=== PATIENT | male | born 1985 | race Caucasian/White ===

== ENCOUNTER 2016-08-22 20:50 | Emergency (ER) | payer MEDICAID, OTHER ==
[~2016-08-22] VITALS: Ht 182.9 cm; Wt 99.8 kg
[2016-08-22 21:44] VITALS: BP 144/75
--- NOTE | 2016-08-22 21:44 | NUR ---
Mayte doan in [facility] - 08/22/16 at 2154 by SONYA PT TAKEN TO OF
--- NOTE | 2016-08-22 23:50 | NUR ---
PT TAKEN TO BED 8
--- NOTE | 2016-08-22 23:55 | NUR ---
CAME IN WITH C/O REDNESS AND SWELLING OF BOTH FEET AND LOWER LEGS FOR 4 DAYS NOW.
[2016-08-23] MEDS ORDERED: ceFAZolin 1,000 MG VIAL IM ONE (01:10)
--- NOTE | 2016-08-23 02:02 | NUR ---
Dr. San evaluating patient at bedside.
[2016-08-23 02:03] VITALS: BP 128/79
--- NOTE | 2016-08-23 02:03 | NUR ---
Patient discharged with v/s stable. Written and verbal after care instructions given and explained BY DR. RUDD. Patient alert, oriented and verbalized understanding of instructions. Ambulatory with steady gait. All questions addressed prior to discharge. ID band removed. Patient advised to follow up with PMD. Rx of NAPROSYN, KEFLEX given. Patient educated on indication of medication including possible reaction and side effects. Opportunity to ask questions provided and answered.
== END 2016-08-23 02:03 | disposition home or self-care (01) ==
LOC: MED 20:51
DX: L03.116 Cellulitis of left lower limb (principal); L03.115 Cellulitis of right lower limb; Z86.19 Personal history of other infectious and parasitic diseases
CPT/HCPCS: 96372; 99283; J0690

== ENCOUNTER 2017-08-11 23:55 | Emergency (ER) | payer OTHER ==
[~2017-08-11] VITALS: Ht 182.9 cm; Wt 99.8 kg
[2017-08-12 00:04] VITALS: BP 151/91
--- NOTE | 2017-08-12 01:20 | NUR ---
PATIENT AMBULATED TO ER CHAIR E.
--- NOTE | 2017-08-12 01:21 | NUR ---
PATIENT IS A 31 Y/O MALE WHO PRESENTS TO THE ED C/O FLU LIKE SYMPTOMS. PT STATES, "I FEEL LIKE IM GETTING THE FLU AND ITS BEEN ABOUT 1 WEEK." PT REPORTS 7/10 ACHING THROAT PAIN THAT DOES NOT RADIATE. PT DENIES CP, SOB, REPORTS NAUSEA DENIES VOMITING/DIARRHEA. PT AAOX4, RR EVEN/UNLABORED. PT REPOSITIONED FOR COMFORT, BED IN LOWEST POSITION. ER MD DR. DELGADILLO NOTIFIED. WILL CONTINUE TO MONITOR.
--- NOTE | 2017-08-12 02:00 | NUR ---
PATIENT RESTING AT THIS TIME.
[2017-08-12 02:25] LABS: BASOPHILS # (AUTO) 0.1 K/uL (0.00-0.22); BASOPHILS % (AUTO) 1.2 % (0.0-2.0); EOSINOPHILS % (AUTO) 0.4 % (0.0-4.0); HEMATOCRIT 44.9 % (36-52); HEMOGLOBIN 14.9 g/dL (12.0-18.0); LYMPHOCYTES % (AUTO) 12.3 % (20.5-51.1); MEAN CORPUSCULAR HEMOGLOBIN 28 pg (27-31); MEAN CORPUSCULAR HGB CONC 33 g/dL (33-37); MEAN CORPUSCULAR VOLUME 85 fL (80-94); MONOCYTES # (AUTO) 0.7 K/uL (0.8-1.0); MONOCYTES % (AUTO) 8.7 % (1.7-9.3); NEUTROPHILS % (AUTO) 77.4 % (42.2-75.2); PLATELET COUNT (AUTO) 226 K/uL (140-450); RED BLOOD CELL COUNT(AUTO) 5.31 MIL/uL (4.20-6.10); RED CELL DISTRIBUTION WIDTH 12.2 % (11.6-13.7); WHITE BLOOD COUNT (AUTO) 7.8 K/uL (4.8-10.8)
[2017-08-12 02:48] LABS: ANION GAP 12.1 (8-16); POTASSIUM 4.1 mmol/L (3.5-5.1)
--- NOTE | 2017-08-12 03:00 | NUR ---
PATIENT MOVED TO ER BED 1.
[2017-08-12 03:02] LABS: ALBUMIN 3.5 g/dL (3.4-5.0); TOTAL BILIRUBIN 0.3 mg/dL (0.0-1.0)
--- NOTE | 2017-08-12 04:00 | NUR ---
PATIENT RESTING AT THIS TIME.
--- NOTE | 2017-08-12 05:00 | NUR ---
PATIENT RESTING AT THIS TIME. NO SIGNS OF DISTRESS.
[2017-08-12 05:38] VITALS: BP 139/82
--- NOTE | 2017-08-12 05:38 | NUR ---
Patient discharged with v/s stable. Written and verbal after care instructions given and explained. Patient alert, oriented and verbalized understanding of instructions. Ambulatory with steady gait. All questions addressed prior to discharge. ID band removed. Patient advised to follow up with PMD. Rx of PROMETHAZINE AND AZITHROMYCIN given. Patient educated on indication of medication including possible reaction and side effects. Opportunity to ask questions provided and answered.
== END 2017-08-12 05:38 | disposition home or self-care (01) ==
LOC: MED 23:55
DX: J40 Bronchitis, not specified as acute or chronic (principal)
CPT/HCPCS: 36415; 71045; 80053; 84484; 85025; 87040; 87081; 87804; 99285

== ENCOUNTER 2017-10-10 17:58 | Emergency (ER) | payer OTHER ==
[~2017-10-10] VITALS: Ht 188 cm; Wt 108.9 kg
--- NOTE | 2017-10-10 18:00 | NUR ---
PT RUTHA BLS FOR ANXIETY TO BED 5
[2017-10-10 18:02] VITALS: BP 148/71
[2017-10-10] MEDS ORDERED: LORazepam 2 MG/ML VIAL ONE (18:03)
[2017-10-10] MEDS ORDERED: ONDANSETRON 4 MG/5 ML ORASYR PO ONE (18:05)
[2017-10-10] MEDS ORDERED: LORazepam 2 MG/ML VIAL IM/IVP ONE (18:05)
[2017-10-10] MEDS ORDERED: NACL 0.9% 2,000 ML IV ONE (18:05)
[2017-10-10] MEDS ORDERED: HALOPERIDOL IM 5 MG/ML VIAL IM ONE (18:10)
[2017-10-10] MEDS ORDERED: diphenhydrAMINE 50 MG/ML VIAL IM ONE (18:10)
[2017-10-10] MEDS ORDERED: HALOPERIDOL IM 5 MG/ML VIAL ONE (18:10)
--- NOTE | 2017-10-10 18:10 | NUR ---
PT BIBA FOR ANXIETY. PER EMS, PT STATES HE ATE A "[employer]" TODAY, STARTED TO GET REALLY ANXIOUS AND CALLED 911. PT WAS IN RESTRAINTS UPON ARRIVAL, DENIES HI/SI. PT IS VERY ANXIOUS, FEARFUL, AND HAVING THOUGHTS OF IMPENDING DOOM, STATES " I FEEL LIKE IM DYING, IM GONNA !" PT PLACED ON ALL MONITORS, TACHYCARDIA OBSERVED AT 130BPM, VS WNL OTHERWISE. DR HEARN AND ER STAFF AT BEDSIDE TO EVAL, VERBAL ORDERS TO MEDICATE BY DR HEARN TO BE CARRIED OUT.
[2017-10-10] MEDS ORDERED: diphenhydrAMINE 50 MG/ML VIAL ONE (18:11)
[2017-10-10] MEDS ORDERED: ONDANSETRON 4 MG/5 ML ORASYR ONE (18:15)
--- NOTE | 2017-10-10 18:26 | NUR ---
PT IS FOLLOWING COMMANDS FOR EKG AND TO OBTAIN IV AND BLOOD DRAW. PTS EYES ARE CLOSED, NOT MOVING AAND SQUIRMING AROUND IN BED LIKE PREVIOUS CONDITION.
--- NOTE | 2017-10-10 18:38 | NUR ---
PT SLEEPING WITH EVEN AND REGULAR RESPIRATIONS, HOB ELEVATED TO 30 DEGRESS, AROUSABLE TO VOICE. PT TOLERATED IV AND BLOOD DRAW WELL. LABS SENT TO LAB
[2017-10-10 18:43] LABS: BASOPHILS % (AUTO) 0.5 % (0.0-2.0); EOSINOPHILS % (AUTO) 0.3 % (0.0-4.0); HEMATOCRIT 43.4 % (36-52); HEMOGLOBIN 14.9 g/dL (12.0-18.0); LYMPHOCYTES # (AUTO) 1.1 K/uL (2.0-11.5); LYMPHOCYTES % (AUTO) 15.6 % (20.5-51.1); MEAN CORPUSCULAR HEMOGLOBIN 29 pg (27-31); MEAN CORPUSCULAR HGB CONC 34 g/dL (33-37); MEAN CORPUSCULAR VOLUME 83.4 fL (80-94); MONOCYTES # (AUTO) 0.5 K/uL (0.8-1.0); MONOCYTES % (AUTO) 6.4 % (1.7-9.3); NEUTROPHILS # (AUTO) 5.6 K/uL (1.8-7.7); PLATELET COUNT (AUTO) 212 K/uL (140-450); RED CELL DISTRIBUTION WIDTH 13.1 % (11.6-13.7); WHITE BLOOD COUNT (AUTO) 7.3 K/uL (4.8-10.8)
[2017-10-10 19:00] LABS: NEUTROPHILS % (AUTO) 77.2 % (42.2-75.2)
[2017-10-10 19:07] LABS: ANION GAP 12.1 (8-16); CARBON DIOXIDE 27.4 mmol/L (21-32); CHLORIDE 102 mmol/L (98-107); CREATININE 1.1 mg/dL (0.7-1.3); GFR ARICAN-AMERICAN 100 mL/min (>90); GLUCOSE 111 mg/dL (74-106); POTASSIUM 3.5 mmol/L (3.5-5.1); SODIUM SERUM 138 mmol/L (136-145); UREA NITROGEN, BLOOD 14 mg/dL (7-18)
[2017-10-10 19:15] LABS: ALBUMIN 3.6 g/dL (3.4-5.0); ASPARTATE AMINOTRANSFERASE 25 U/L (15-37); TOTAL BILIRUBIN 0.5 mg/dL (0.0-1.0)
[2017-10-10 19:17] LABS: ACETAMINOPHEN < 0.5 ug/ml (10-30); SALICYLATE < 2.8 mg/dL (2.8-20.0)
--- NOTE | 2017-10-10 20:39 | NUR ---
Patient appears to be resting comfortably in bed, arousable to light pain. Vital Signs within normal limits. Respirations even and unlabored. pt remains on all monitors, close to nurses station. MD notified of pt condition.
--- NOTE | 2017-10-10 20:58 | NUR ---
Report given to MARIA FERNANDA Turner, care turned over.
[2017-10-10 21:29] LABS: BARBITURATE, URINE NEG. ng/ml (NEG <=200); BENZODIAZEPINE, URINE NEG. ng/mL (NEG <=200); CANNABINOID, URINE POS. ng/mL (NEG <=50); COCAINE, URINE NEG. ng/mL (NEG <=300); OPIATE, URINE NEG. ng/mL (NEG <=2000); PHENCYCLIDINE SCREEN,URINE NEG. ng/mL (NEG <=25)
--- NOTE | 2017-10-10 21:37 | NUR ---
PT RESING IN BED, VSS, APPEARS TO BE IN NO DISTRESS. WILL CONT TO MONITOR,
[2017-10-10] MEDS ORDERED: NACL 0.9% 1,000 ML IV ONE (22:10)
[2017-10-10 22:50] VITALS: BP 102/71
--- NOTE | 2017-10-10 22:50 | NUR ---
Patient discharged with v/s stable. Written and verbal after care instructions given and explained TO PT AND SISTER. Patient AND SISTER verbalized understanding. Ambulatory with to car. PICKED UP BY SISTER. All questions addressed prior to discharge. Advised to follow up with PMD.
== END 2017-10-10 22:50 | disposition home or self-care (01) ==
LOC: MED 17:58
DX: F19.10 Other psychoactive substance abuse, uncomplicated (principal)
CPT/HCPCS: 36415; 80053; 80305; 81002; 85025; 93005; 96360; 96361; 96372; 99285; G0480; G0482; J1200; J1630; J2060; J7030; Q0162

== ENCOUNTER 2018-07-07 21:41 | Emergency (ER) | payer OTHER ==
[~2018-07-07] VITALS: Ht 182.9 cm; Wt 102.1 kg
[2018-07-07 21:58] VITALS: BP 139/97
--- NOTE | 2018-07-07 23:30 | NUR ---
32/M PRESENTS TO ED, C/O "SPIDER BITE" OR POSSIBLE INSECT BITE X2 DAYS. APPROX 1CM X 1CM EMILIA NOTED WITH 7CM X 7CM REDNESS NOTED. +TENDERNESS, +SWELLING. PT AOX4, GCS 15, RR EVEN AND UNLABORED. HX HIV, HTN RX HCTZ, AMLODIPINE
[2018-07-08] MEDS ORDERED: SULFAMETH/TRIMETH DS 800/160MG 1 TAB PO ONE (00:35)
[2018-07-08] MEDS ORDERED: IBUPROFEN 800 MG TAB PO ONE (00:35)
[2018-07-08 01:06] VITALS: BP 148/79
--- NOTE | 2018-07-08 01:06 | NUR ---
Patient discharged with v/s stable. Written and verbal after care instructions given and explained. Patient alert, oriented and verbalized understanding of instructions. Ambulatory with steady gait. All questions addressed prior to discharge. ID band removed. Patient advised to follow up with PMD. Rx of BACTRIM, MOTRIN given. Patient educated on indication of medication including possible reaction and side effects. Opportunity to ask questions provided and answered.
== END 2018-07-08 01:06 | disposition home or self-care (01) ==
LOC: MED 21:41
DX: T63.301A Toxic effect of unspecified spider venom, accidental (unintentional), initial encounter (principal); L03.116 Cellulitis of left lower limb; I10 Essential (primary) hypertension; Y92.89 Other specified places as the place of occurrence of the external cause
CPT/HCPCS: 99283

== ENCOUNTER 2018-08-07 11:23 | Emergency (ER) | payer OTHER ==
[~2018-08-07] VITALS: Ht 182.9 cm; Wt 102.5 kg
--- NOTE | 2018-08-07 11:29 | NUR ---
PT TO ER BED 6
[2018-08-07 11:30] VITALS: BP 136/84
--- NOTE | 2018-08-07 11:30 | NUR ---
report given to Antonio IRVING
--- NOTE | 2018-08-07 11:45 | NUR ---
pt bib self c/o spider bite to L posterior thigh x 1 week, +erythema/edema noted. 4/10 sharp THROBBING PAIN THAT IS NON RADIATING. DENIES ANY FEVER OR CHILLS. RR EVEN AND UNLABORED. ROM INTACT TO L LEG. NON DRAINING AT THIS TIME. ER MD MADE AWARE. WILL CONTINUE TO MONITOR. SAFETY PRECAUTIONS IN PLACE.
--- NOTE | 2018-08-07 12:40 | NUR ---
PT. RESTING COMFORTABLY IN BED, RR EVEN AND UNLABORED. VSS. WILL CONTINUE TO MONITOR.
--- NOTE | 2018-08-07 14:03 | NUR ---
PT. RESTING IN BED, RR EVEN AND UNLABORED, STILL TO BE SEEN BY ER MD. WILL CONTINUE TO MONITOR.
[2018-08-07] MEDS ORDERED: CLINDAMYCIN 600 MG/4 ML VIAL IM ONE (14:15)
[2018-08-07 14:53] VITALS: BP 130/80
--- NOTE | 2018-08-07 14:53 | NUR ---
Patient discharged with v/s stable. Written and verbal after care instructions given and explained. Patient alert, oriented and verbalized understanding of instructions. Ambulatory with steady gait. All questions addressed prior to discharge. ID band removed. Patient advised to follow up with PMD. Rx of CLINDAMYCIN 300MG CAPSULE given. Patient educated on indication of medication including possible reaction and side effects. Opportunity to ask questions provided and answered.
== END 2018-08-07 14:53 | disposition home or self-care (01) ==
LOC: MED 11:23
DX: L03.116 Cellulitis of left lower limb (principal); I10 Essential (primary) hypertension; Z79.899 Other long term (current) drug therapy
CPT/HCPCS: 96372; 99283; J3490

== ENCOUNTER 2019-02-09 16:43 | Emergency (ER) | payer OTHER ==
[~2019-02-09] VITALS: Ht 182.9 cm; Wt 105.4 kg
[2019-02-09 16:52] VITALS: BP 128/86
--- NOTE | 2019-02-09 17:04 | NUR ---
PT AMBULATED WITH STEADY GAIT TO CHAIR A
--- NOTE | 2019-02-09 17:20 | NUR ---
PT EVALUATION BY KANDIS BEAVERS
[2019-02-09] MEDS ORDERED: CEPHALEXIN 500 MG CAP PO ONE (17:25)
--- NOTE | 2019-02-09 17:29 | NUR ---
33/M PRESENTS TO ED, C/O POSSIBLE BUG BITES, X2 DAYS. AREAS OF ERYTHEMA WITH MILD SWELLING AND BITE CHANG NOTED ON L SHOULDER, L ARM, LLE. PT DENIES FEVER, N/V. PT AWAKE AND ALERT, SKIN NORMAL WARM AND DRY, RR EVEN AND UNLABORED. HX HIV, HEP C, HTN RX STRIBILD, HTN MED OTC BENADRYL CREAM WITH LITTLE RELIEF
[2019-02-09 17:57] VITALS: BP 133/89
--- NOTE | 2019-02-09 17:59 | NUR ---
Patient discharged with v/s stable. Written and verbal after care instructions given and explained. Patient alert, oriented and verbalized understanding of instructions. Ambulatory with steady gait. All questions addressed prior to discharge. ID band removed. Patient advised to follow up with PMD. Rx of KEFLEX, BENADRYL, CORTISONE CREAM given. Patient educated on indication of medication including possible reaction and side effects. Opportunity to ask questions provided and answered.
== END 2019-02-09 17:59 | disposition home or self-care (01) ==
LOC: MED 16:43
DX: L25.9 Unspecified contact dermatitis, unspecified cause (principal); L03.114 Cellulitis of left upper limb; L03.116 Cellulitis of left lower limb; I10 Essential (primary) hypertension
CPT/HCPCS: 99283; Q0163

== ENCOUNTER 2019-03-31 02:07 | Observation (INO) | payer OTHER ==
[~2019-03-31] VITALS: Ht 185.4 cm; Wt 104.3 kg
[2019-03-31 02:24] VITALS: BP 132/81
[2019-03-31] MEDS ORDERED: ORE25 PO (02:30)
[2019-03-31] MEDS ORDERED: NACL 0.9% 1,000 ML IV ONE ×2 (04:55→07:45)
[2019-03-31] MEDS ORDERED: KETOROLAC 30 MG/ML VIAL IVP ONE (04:55)
[2019-03-31 05:32] LABS: BASOPHILS % (AUTO) 0.4 % (0.0-2.0); EOSINOPHILS # (AUTO) 0.1 K/uL (0-0.4); EOSINOPHILS % (AUTO) 0.5 % (0.0-4.0); HEMATOCRIT 44.7 % (36-52); HEMOGLOBIN 15.1 g/dL (12.0-18.0); LYMPHOCYTES # (AUTO) 2.1 K/uL (2.0-11.5); LYMPHOCYTES % (AUTO) 18.3 % (20.5-51.1); MEAN CORPUSCULAR HEMOGLOBIN 29 pg (27-31); MEAN CORPUSCULAR HGB CONC 34 g/dL (33-37); MEAN CORPUSCULAR VOLUME 84.3 fL (80-94); MONOCYTES # (AUTO) 1.1 K/uL (0.8-1.0); MONOCYTES % (AUTO) 9.7 % (1.7-9.3); NEUTROPHILS # (AUTO) 8.2 K/uL (1.8-7.7); NEUTROPHILS % (AUTO) 71.1 % (42.2-75.2); PLATELET COUNT (AUTO) 198 K/uL (140-450); RED BLOOD CELL COUNT(AUTO) 5.31 MIL/uL (4.20-6.10); RED CELL DISTRIBUTION WIDTH 12.4 % (11.6-13.7); WHITE BLOOD COUNT (AUTO) 11.5 K/uL (4.8-10.8)
[2019-03-31 05:58] LABS: ANION GAP 12.1 (8-16); CARBON DIOXIDE 25.8 mmol/L (21-32); CREATININE 0.8 mg/dL (0.7-1.3); POTASSIUM 3.9 mmol/L (3.5-5.1)
[2019-03-31 06:04] LABS: ALBUMIN 3.5 g/dL (3.4-5.0); TOTAL BILIRUBIN 0.8 mg/dL (0.0-1.0)
[2019-03-31 06:20] LABS: PROTHROMBIN TIME 10.7 secs (10.8-13.4)
[2019-03-31] MEDS ORDERED: PIPERACILLIN/TAZOBACTAM 3.375 GM in DEXTROSE 5% 50 ML IV ONE (07:45)
[2019-03-31] MEDS ORDERED: VANCOMYCIN 1,000 MG in DEXTROSE 5% 250 ML IV ONE (07:45)
[2019-03-31] MEDS ORDERED: VANCOMYCIN PER PHARMACY MC PRN (08:00)
[2019-03-31] MEDS ORDERED: ONDANSETRON 4 MG/2 ML VIAL IVP PRN (08:00)
[2019-03-31] MEDS ORDERED: MORPHINE SULFATE 2 MG/ML SYR IVP PRN (08:00)
[2019-03-31] MEDS ORDERED: MORPHINE SULFATE 4 MG/ML SYR IVP PRN (08:00)
[2019-03-31] MEDS ORDERED: LORazepam 2 MG/ML VIAL IVP PRN (08:00)
[2019-03-31] MEDS ORDERED: VANCOMYCIN 1,000 MG VIAL ONE (08:02)
[2019-03-31] MEDS ORDERED: PIPERACILLIN/TAZOBACTAM 3.375 GM VIAL IV ONE (08:02)
[2019-03-31 08:28] LABS: APPEARANCE,URINE CLEAR (CLEAR); BILIRUBIN,URINE NEGATIVE (NEGATIVE); BLOOD, URINE NEGATIVE (NEGATIVE); COLOR,URINE YELLOW (YELLOW); LEUKOCYTE ESTERASE ,URINE NEGATIVE (NEGATIVE); NITRITE, URINE NEGATIVE (NEGATIVE); UGLUCOSE NEGATIVE (NEGATIVE)
[2019-03-31 08:45] LABS: RBC,URINE 0-5 /HPF (0-5)
[2019-03-31 08:46] LABS: WBC,URINE 0-5 /HPF (0-5)
[2019-03-31 08:50] VITALS: BP 125/80
[2019-03-31] MEDS ORDERED: LEVO750T2 PO (11:27)
[2019-03-31] MEDS ORDERED: LEVOFLOXACIN 750 MG/D5W PREMIX 150 ML IV SCH (12:00)
[2019-03-31] MEDS ORDERED: INFLUENZA VACCINE QUAD 0.5 ML SYR IM PRN (13:10)
[2019-03-31] MEDS ORDERED: PNEUMOCOCCAL VACCINE 23 MCG/0.5 ML VIAL IMVAC SCH (13:10)
[2019-03-31] MEDS ORDERED: VANCOMYCIN 1,000 MG in DEXTROSE 5% 250 ML IV SCH (17:00)
[2019-04-02 06:07] LABS: CHLAMYDIA TRACHOMATIS AMP DNA Negative (Negative)
== END 2019-03-31 13:43 | disposition home or self-care (01) ==
LOC: MED 02:07 → MMU 08:15
PROVIDERS: ADMIT Internal Medicine Pulmonary Disease; ATTEND Internal Medicine Pulmonary Disease
DX: N49.2 Inflammatory disorders of scrotum (principal); I10 Essential (primary) hypertension; Z21 Asymptomatic human immunodeficiency virus [HIV] infection status
CPT/HCPCS: 36415; 76870; 80053; 81001; 83605; 85025; 85610; 85730; 87040; 87081; 87491; 96361; 96365; 96367; 96375; 99285; G0378; J1885; J2543; J3370; J7030; J7060; Q0092

== ENCOUNTER 2019-05-07 22:49 | Emergency (ER) | payer OTHER ==
[~2019-05-07] VITALS: Ht 182.9 cm; Wt 104.1 kg
[~2019-05-07 22:49] MED LIST: LEVO750T2 PO; ORE25 PO
[2019-05-07 22:56] VITALS: BP 150/93
--- NOTE | 2019-05-07 23:14 | NUR ---
33 Y/O M PRESENTS TO ER C/O ABCESS TO RIGHT ARMPIT X2 WEEKS. AREA IS RED, SWOLLEN, AND BLEEDING NOTED. PAIN LEVEL 8/10, THROBBING. PT STATED "IT STARTED OUT AN INGROWN HAIR AND HE ATTEMPTED TO POP IT BUT NOW IT'S EVEN BIGGER AND IT HURTS TO PUT MY ARM DOWN" HOB ELEVATED, BED IN LOWEST POSITION, BED RAIL X1. ERMD MADE AWARE OF STATUS. ALLERGIES: NKA MED HX: HTN AND HIV
--- NOTE | 2019-05-07 23:16 | NUR ---
DR. GASTON EVALUATING PT AT BEDSIDE.
--- NOTE | 2019-05-07 23:25 | NUR ---
I&D SET UP AT BED SIDE. NURSE AND MD NOTIFIED
--- NOTE | 2019-05-07 23:27 | NUR ---
PT WOUND IRRIGATED WITH NORMALE SALINE AND CLEANED WITH GAUZE
[2019-05-07] MEDS ORDERED: LIDOCAINE/EPI 2% 1:100000 20 ML VIAL INJ ONE (23:30)
[2019-05-07] MEDS ORDERED: CEPHALEXIN 500 MG CAP PO ONE (23:55)
[2019-05-07] MEDS ORDERED: SULFAMETH/TRIMETH DS 800/160MG 1 TAB PO ONE (23:55)
--- NOTE | 2019-05-08 00:02 | NUR ---
EMT AT BEDSIDE.
--- NOTE | 2019-05-08 00:10 | NUR ---
PT WOUND IRRIGATED AND CLEANED WITH NORMAL SALINE AND GUAZE PADS, TWO STERILE 4X4 GUAZE PADS PLACED ON TOP OF WOUND AND WRAPPED WITH TWO MARIBEL WRAPS, TAPE PLACED OVER EXPOSED EDGES OF MARIBEL WRAP.
[2019-05-08 00:20] VITALS: BP 127/82
--- NOTE | 2019-05-08 00:20 | NUR ---
Patient discharged with v/s stable. Written and verbal after care instructions given and explained. Patient alert, oriented and verbalized understanding of instructions. Ambulatory with steady gait. All questions addressed prior to discharge. ID band removed. Patient advised to follow up with PMD. Rx of BACTRIM; KEFLEX; IBUPROFEN given. Patient educated on indication of medication including possible reaction and side effects. Opportunity to ask questions provided and answered.
== END 2019-05-08 00:20 | disposition home or self-care (01) ==
LOC: MED 22:49
DX: L02.411 Cutaneous abscess of right axilla (principal); I10 Essential (primary) hypertension; Z79.899 Other long term (current) drug therapy
CPT/HCPCS: 10060; 99283; J2001

== ENCOUNTER 2019-05-11 22:15 | Emergency (ER) | payer OTHER ==
[~2019-05-11] VITALS: Ht 182.9 cm; Wt 105.2 kg
[2019-05-11 22:18] VITALS: BP 148/73
--- NOTE | 2019-05-11 23:28 | NUR ---
PT TO ER BED 4
--- NOTE | 2019-05-11 23:30 | NUR ---
33 Y/O MALE PRESENTS TO ED, C/O RIGHT AXILLARY WOUND. PT STATES WOUND APPEARED 2 WEEKS AGO WITH PAIN 5/10. REDNESS AND SWELLING NOTED. NO ABNORMAL DRAINAGE NOTED. PT STABLE CONDITION. ERMD MADE AWARE. WILL CONTINUE TO MONITOR.
[2019-05-12 00:17] VITALS: BP 135/77
--- NOTE | 2019-05-12 00:17 | NUR ---
PT DISCHARGED WITH PAPERWORK. NO MEDICATION RX. PROVIDED. EDUCATED PT REGARDING D/C DIAGNOSIS AND INSTRUCTIONS. PT VERBALIZED UNDERSTANDING OF TEACHING. TOLD PT TO FOLLOW UP WITH PCP AND WHEN TO RETURN TO ED. PT STABLE CONDITION. ALL QUESTIONS ANSWERED.
== END 2019-05-12 00:17 | disposition home or self-care (01) ==
LOC: MED 23:52
DX: L02.411 Cutaneous abscess of right axilla (principal); Z48.01 Encounter for change or removal of surgical wound dressing; I10 Essential (primary) hypertension; Z79.899 Other long term (current) drug therapy; Z79.2 Long term (current) use of antibiotics